=== PATIENT | female | born 2000 | race Caucasian/White ===

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

== ENCOUNTER 2019-01-28 12:27 | Emergency (ER) | payer OTHER ==
[2019-01-28 12:37] VITALS: BP 131/69
--- NOTE | 2019-01-28 12:56 | UC ---
Abdominal Pain Female HPI - HPI Summary HPI Summary: Onset of vomiting and abdominal pain at 17:00 yesterday, with increasing pain. Last stool passed was yesterday morning. No appetite. Urine now dark in color. No headache, low grade fever/ - History of Current Complaint Chief Complaint: UCAbdominalPain Stated Complaint: SEVERE ABD PAIN Time Seen by Provider: 01/28/19 12:47 Hx Obtained From: Patient Hx Last Menstrual Period: 3 weeks ago? ?: No Onset/Duration: Sudden Onset Timing: Constant Severity Initially: Moderate Severity Currently: Moderate Pain Intensity: 6 Location: Other - periumbilical pain with radiation to the RLQ. Radiates: Yes Radiates to: RLQ Character: Cramping, Sharp Aggravating Factor(s): Movement, Deep Breaths Alleviating Factor(s): Position Associated Signs and Symptoms: Positive: Fever, Decreased Appetite - Risk Factors Ectopic Risk Factor: Negative Allergies/Adverse Reactions: Allergies Allergy/AdvReac Type Severity Reaction Status Date / Time No Known Allergies Allergy Verified 01/28/19 12:32 Home Medications: Home Medications Etonogestrel [Nexplanon] 68 mg IMPLANT ONCE 01/28/19 [History Confirmed 01/28/19 ] Venlafaxine EXT RELEASE CAP* [Effexor Xr CAP*] 37.5 mg PO BID 01/28/19 [History Confirmed 01/28/19] PMH/Surg Hx/FS Hx/Imm Hx Previously Healthy: Yes Psychological History: Depression - Surgical History Surgical History: None - Family History Known Family History: Positive: Non-Contributory - Social History Occupation: Employed Full-time Lives: With Family Alcohol Use: Occasionally Substance Use Type: Marijuana Substance Use Comment - Amount & Last Used: daily Smoking Status (MU): Heavy Every Day Tobacco Smoker Type: Cigarettes Amount Used/How Often: 1/2 PPD - Immunization History Vaccination Up to Date: Yes Review of Systems All Other Systems Reviewed And Are Negative: Yes Constitutional: Positive: Fever Gastrointestinal: Positive: Abdominal Pain, Vomiting, Nausea Psychological: Positive: Other - history of depression, controlled with seroquel and effexor. Has not had effexor since yesterday morning. Is Patient Immunocompromised?: No Physical Exam Triage Information Reviewed: Yes Appearance: Ill-Appearing, Pain Distress - moderate to severe, tearful, Thin Vital Signs: Initial Vital Signs Temp 100.3 F 01/28/19 12:33 Pulse 98 01/28/19 12:33 Resp 16 01/28/19 12:33 BP 131/69 01/28/19 12:33 Pulse Ox 100 01/28/19 12:33 Eyes: Positive: Conjunctiva Inflamed ENT: Positive: Pharynx normal Neck exam: Normal Neck: Positive: Supple, Nontender, No Lymphadenopathy Respiratory: Positive: Lungs clear, Normal breath sounds Cardiovascular: Positive: RRR, No Murmur Abdomen Description: Positive: No Organomegaly, Distended, Guarding - involuntary guarding.. Negative: CVA Tenderness (R), CVA Tenderness (L) Bowel Sounds: Positive: Hypoactive Musculoskeletal Exam: Normal Neurological: Positive: Alert, Muscle Tone Normal Psychological Exam: Normal Skin Exam: Other - linear scars both arms Abd Pain Female Course/Dx - Course Course Of Treatment: To ER by private car for workup of possible appendicitis. - Differential Dx/Diagnosis Differential Diagnosis: Appendicitis, Constipation, Pelvic Inflammatory Disease Provider Diagnosis: Abdominal pain - Physician Notification/Consults Discussed Care of Patient With: Malinda Drummond Time Discussed With Above Provider: 13:00 Discharge - Sign-Out/Discharge Documenting (check all that apply): Patient Departure All imaging exams completed and their final reports reviewed: No Studies - Discharge Plan Condition: Fair Disposition: TRANS HIGHER LVL OF CARE FAC Patient Education Materials: Acute Abdominal Pain (ED) Referrals: Bayron Gary MD [Medical Doctor] - Additional Instructions: Please go directly to the emergency room for evaluation of suspected appendicitis. Nothing more to eat or drink before evaluated. - Billing Disposition and Condition Condition: FAIR Disposition: Trans Higher Lvl of Care Fac
--- OUTSIDE RECORDS SUMMARY | 2019-01-28 13:06 | XMS REPORT | Continuity of Care Document ---
:2000 External Reference #:[id number] Author Name Reginaldo Washington N.P. Address [address] [facility] [address] [place] [address] Care Team Providers Name Role Phone Yared Carter MD Care Team Information Head Pumper Unavailable Payers Date Identification Numbers Payment Provider Subscriber Policy Number: [id number] [facility] Lanie Vásquez PayID: [id number] [address] [place] [address] Policy Number: [id number] Medicaid/[facility] [employer] Lanie Vásquez PayID: [id number] [address] [place] [address] Problems Description No Active Problems Family History Date Family Member(s) Observation Comments General Anxiety Father No Current Problems Mother No Current Problems Children None Siblings 1 Grandchildren None Social History Type Date Description Comments Sex Unknown Marital Status Legal Status: Never Work Status Part-Time Employment ETOH Use Denies alcohol use Tobacco Use Start: Unknown Light tobacco smoker (10 or fewer cigarettes/day) Recreational Drug Use Current Drug User Smoking Status Reviewed: 01/15/19 Light tobacco smoker (10 or fewer cigarettes/day) Allergies, Adverse Reactions, Alerts Description No Known Drug Allergies Medications Active Medications SIG Qnty Indications Ordering Provider Date Quetiapine Fumarate 1 by mouth AT 30tabs F33.9 Yared Carter, 01/16/2019 25mg Night M.D. Tablets Venlafaxine HCL 1 by mouth 60tabs F33.9 Yared Carter, 01/04/2019 37.5mg twice a day M.D. Tablets History Medications No Active Medications Yared Carter M.D. 12/06/2012 - 01/04/2019 Vital Signs Date Vital Result Comment 01/16/2019 3:19pm BP Systolic 110 mmHg BP Diastolic 62 mmHg Height 64 inches 5'4" Weight 142.00 lb BMI (Body Mass Index) 24.4 kg/m2 Heart Rate 124 /min Respiratory Rate 16 /min 01/04/2019 12:18pm BP Systolic 110 mmHg BP Diastolic 60 mmHg Height 64 inches 5'4" Weight 143.00 lb BMI (Body Mass Index) 24.5 kg/m2 Heart Rate 70 /min Body Temperature 97.8 F Respiratory Rate 16 /min Encounters Type Date Location Provider Dx Diagnosis Office Visit 01/16/2019 Isabela Washington, N.P. F33.9 Major depressive 3:00p disorder, recurrent, unspecified L20.9 Atopic dermatitis, unspecified F17.210 Nicotine dependence, cigarettes, uncomplicated Z68.24 Body mass index (BMI) 24.0-24.9, adult Office Visit 01/04/2019 1:30p Isabela Washington NGaldino. F33.9 Major depressive disorder, recurrent, unspecified L20.9 Atopic dermatitis, unspecified Z00.01 Encounter for general adult medical exam w abnormal findings F17.210 Nicotine dependence, cigarettes, uncomplicated Z68.24 Body mass index (BMI) 24.0-24.9, adult Plan of Treatment Future Appointment(s):02/15/2019 2:00 pm - Reginaldo Washington N.P. at [place]
--- OUTSIDE RECORDS SUMMARY | 2019-01-28 13:06 | XMS REPORT | Continuity of Care Document ---
:1999 External Reference #:[id number] Author Name Reginaldo Washington N.P. Address [address] [facility] [address] [place] [address] Care Team Providers Name Role Phone Yared Carter MD Care Team Information Overhead Door Technician Unavailable Payers Date Identification Numbers Payment Provider Subscriber Policy Number: [id number] [facility] Lanie Vásquez PayID: [id number] [address] [place] [address] Policy Number: [id number] Medicaid/[employer] Lanie Vásquez PayID: [id number] [address] [place] [address] Problems Description No Active Problems Family History [...] Use Current Drug User Smoking Status Reviewed: 01/04/19 Light tobacco smoker (10 or fewer cigarettes/day) Allergies, Adverse Reactions, Alerts Description No Known Drug Allergies Medications Active Medications SIG Qnty Indications Ordering Provider Date Venlafaxine HCL 1 by mouth 60tabs F33.9 Yared Carter, 01/04/2019 37.5mg twice a day M.DYaya Tablets History Medications No Active Medications Yared Carter M.D. 12/06/2012 - 01/04/2019 Vital Signs Date Vital Result Comment 01/04/2019 12:18pm BP Systolic 110 mmHg BP Diastolic 60 mmHg Height 64 inches 5'4" Weight 143.00 lb BMI (Body Mass Index) 24.5 kg/m2 Heart Rate 70 /min Body Temperature 97.8 F Respiratory Rate 16 /min Encounters Type Date Location Provider Dx Diagnosis Office Visit 01/04/2019 Isabela Washington N.P. F33.9 Major depressive 1:30p disorder, recurrent, unspecified L20.9 Atopic dermatitis, unspecified Z00.01 Encounter for general adult medical exam w abnormal findings F17.210 Nicotine dependence, cigarettes, uncomplicated Plan of Treatment Future Appointment(s):01/16/2019 3:00 pm - Reginaldo Washington N.P. at [place]2018 - Reginaldo Washington N.P.F33.9 Major depressive disorder, recurrent, unspecifiedNew Medication:Venlafaxine HCL 37.5 mg - 1 by mouth twice a dayComments:COUNCELLING AND REASSURANCE RELAXATION TECHNIQUES DISCUSSED COUNSELED RE: STRESSORS IN LIFEFollow up:2 weeks.L20.9 Atopic dermatitis, unspecifiedComments:SKIN CARE INSTRUCTIONS LOTION OR BABY OIL 2-3 APPLICATION PER DAYUSE MOISTURIZING SOAPAVOID PROLONGED WATER EXPOSUREAVOID USING HOT WATER IN [id number] Encounter for general adult medical examination with abnormal findingsComments:GOOD NUTRITION /EXERCISEDENTAL/ FLOSSING/ SELF CAREDROWNING/ SUN SAFETYSEAT BELT/ DRIVING SAFETYSPORT BIKE/ HELMET USESPORTS/ INJURY PREVENTIONVIOLENCE PREVENTION/ GUN SAFETYPARENTING ADVICE"SAFE AT HOME"SEX EDUCATION/ COUNSELINGBREAST/ TESTICULAR SELF EXAMEDUCATION GOALS/ ACTIVITIESLIMIT TV/ INTERNETUSETOBACCO/ ALCOHOL/ DRUGS/ INHALANTSPEER REFUSAL SKILLSSOCIAL INTERACTIONFAMILY FUNCTIONINGSELF CONTROLDEPRESSION/ ANXIETYNEXT APPOINTMENTYEARLY PHYSICAL WELLNESS [id number] Nicotine dependence, cigarettes, uncomplicatedComments:SMOKING CESSATION COUNCELLING
== END 2019-01-28 13:16 | disposition home health service (06) ==
LOC: UCCORT 12:27
DX: R10.9 Unspecified abdominal pain (principal); F17.210 Nicotine dependence, cigarettes, uncomplicated
CPT/HCPCS: 84702; 99212; G0463